=== PATIENT | female | born 1990 | race African-American/Black ===

== ENCOUNTER 2020-02-13 18:48 | Emergency (ER) | payer MEDICAID ==
[~2020-02-13] VITALS: Ht 162.6 cm; Wt 86.0 kg
[2020-02-13] MEDS ORDERED: SODIUM CHLORIDE 0.9% 1,000 ML IV ONE (19:30)
[2020-02-13] MEDS ORDERED: MORPHINE SULFATE 4 MG/ML CPJ (NOT FOR IM USE) IV ONE (19:45)
[2020-02-13] MEDS ORDERED: DIPHENHYDRAMINE 25MG CAPSULE PO ONE ×2 (20:00→21:30)
[2020-02-13 20:43] LABS: CLARITY URINE CLOUDY (CLEAR); COLOR URINE YELLOW (YELLOW); KETONES URINE TRACE (NEGATIVE); LEUKOCYTE ESTERASE URINE 1+ (NEGATIVE); NITRITE URINE NEGATIVE (NEGATIVE); OCCULT BLOOD URINE NEGATIVE (NEGATIVE); PROTEIN URINE TRACE (NEGATIVE); SPECIFIC GRAVITY URINE 1.025 (1.005-1.030); UROBILINOGEN URINE 0.2 E.U./dL (0.2-1.0)
[2020-02-13] MEDS ORDERED: HYDROMORPHONE HCL/PF 2MG/ML CPJ IV ONE (21:30)
[2020-02-13 21:57] LABS: BASOPHILS % 0.3 % (0.0-2.0); EOSINOPHILS % 0.6 % (0.0-5.0); HEMATOCRIT. 33.5 % (36.0-48.0); HEMOGLOBIN. 11.3 g/dL (12.0-16.0); LYMPHOCYTES % 17.2 % (20.0-50.0); MEAN CORPUSCULAR VOLUME 85.9 fL (81.0-99.0); MEAN PLATELET VOLUME 8.3 fl (7.4-10.4); MONOCYTES % 4.3 % (2.0-8.0); NEUTROPHILS % 77.6 % (40.0-76.0); PLATELET 240 x1000/uL (130-400); RED BLOOD CELL COUNT 3.91 mill/uL (4.2-5.4); RED CELL DISTRIBUTION WIDTH 17.7 % (11.6-14.6)
[2020-02-13 22:06] LABS: CHLORIDE 108 mEq/L (98-107)
[2020-02-13 23:00] VITALS: BP 143/85
== END 2020-02-13 23:43 | disposition left against medical advice (07) ==
LOC: ER 18:48 → EDBEDREQTM 21:32 → EDBEDREQ 21:32 → ENRESERV 22:10 → CANRESERV 22:10 → CANBEDREQ 23:10 → ER 23:43
DX: O26.893 Other specified pregnancy related conditions, third trimester (principal); O99.013 Anemia complicating pregnancy, third trimester; D57.01 Hb-SS disease with acute chest syndrome; Z3A.32 32 weeks gestation of pregnancy; I70.269 Atherosclerosis of native arteries of extremities with gangrene, unspecified extremity; Z88.0 Allergy status to penicillin; Z86.718 Personal history of other venous thrombosis and embolism
CPT/HCPCS: 36415; 71045; 76815; 80053; 81003; 82962; 83880; 84484; 85025; 85660; 93005; 96361; 96374; 99285; J2270; J7030; Q0163; J1170

== ENCOUNTER 2021-05-16 07:53 | Emergency (ER) | payer MEDICAID ==
[~2021-05-16] VITALS: Ht 167.6 cm; Wt 127.0 kg
[2021-05-16 08:09] VITALS: BP 122/81
== END 2021-05-16 11:43 | disposition left against medical advice (07) ==
LOC: ER 07:53
DX: Z53.21 Procedure and treatment not carried out due to patient leaving prior to being seen by health care provider (principal)
CPT/HCPCS: 93005; 99283